=== PATIENT | male | born 1930 | race Caucasian/White ===

== ENCOUNTER 2017-03-30 17:30 | Emergency (ER) | payer OTHER, MEDICARE ==
[~2017-03-30] VITALS: Ht 175.3 cm; Wt 91.0 kg
[~2017-03-30 17:30] MED LIST: ASPIR-LOW81 MG PO; ASPIRIN325 MG PO; AVODART0.5 MG PO; B-COMPLEX FOL400 MCG PO; CARISOPRODOL350 MG PO; CLONAZEPAM0.5 MG PO; COZAAR50 MG PO; CYANOCOBALAM1000 MCG PO; DARVOCET-N 1001 EACH PO; DIURETIC; ELIQUIS5 MG PO; FLONASE16 G1 BOTH NARES; INDAPAMIDE2.5 MG PO; IRON325 M1 PO; KLONOPIN0.5 M1 PO; LIDODERM 5% P1 PATCH TD; LIPITOR20 MG PO; LOSARTAN POTAS100 MG PO; LOSARTAN POTASS50 MG PO; LUMITENE30 MG PO; MAALOX MAXIMUM355 ML PO; MAGNESIUM250 MG PO; MELATONIN5 M1 PO; MULTIPLE VITAM1 EACH PO; NIACIN250 M1 PO; NIACIN250 M3 PO; NIFEDIPINE ER60 MG PO; ONGLYZA5 MG PO; PLAVIX75 MG PO; PROSCAR5 MG PO; PROSTATE HEALT1 EACH PO; TENORMIN50 MG PO; TRAMADOL HCL50 MG PO; TRILIPIX135 MG; TRILIPIX135 MG PO; TUMS ULTRA1000 MG PO; ULTRA STRENGT PO; VESICARE5 MG PO; VIRT-VITE PLUS T5 MG PO; VITAMIN A DAY1 EACH PO; VITAMIN D1000 INTUN PO; VITAMIN D1000 UNIT PO; ZANTAC150 M1 PO; ZANTAC150 MG PO
[2017-03-30 20:40] VITALS: BP 152/77
== END 2017-03-30 20:40 | disposition home or self-care (01) ==
LOC: EME 17:30
DX: S01.01XA Laceration without foreign body of scalp, initial encounter (principal); W01.198A Fall on same level from slipping, tripping and stumbling with subsequent striking against other object, initial encounter; Y93.01 Activity, walking, marching and hiking; Z23 Encounter for immunization; E78.5 Hyperlipidemia, unspecified; I10 Essential (primary) hypertension; I25.2 Old myocardial infarction; Z95.5 Presence of coronary angioplasty implant and graft
CPT/HCPCS: 70450; 99281; 99285

== ENCOUNTER 2017-12-26 12:07 | Inpatient (IN) | payer OTHER, MEDICARE ==
[2017-12-26] VITALS (7 sets, daily range): BP systolic 117–147; BP diastolic 59–69
[~2017-12-26] VITALS: Ht 172.7 cm; Wt 81.2 kg
[~2017-12-26 12:07] MED LIST changes: +ATORVASTATIN CA20 MG PO; +CARDIZEM CD120 M1 PO; +CARDIZEM60 MG PO; +FUROSEMIDE40 MG PO; +LASIX20 MG PO; +LORAZEPAM0.5 MG PO; +LOW DOSE ASPIRI81 M1 PO; +METFORMIN HCL500 MG PO; +PROTONIX40 MG PO
[2017-12-26 13:17] LABS: INTER. NORMALIZED RATIO 1.2
[2017-12-26 13:18] LABS: HEMATOCRIT 20.6 % (38.0-50.0); MCH 27.7 PG (29.0-34.0); MCHC 31.6 G/DL (30.0-36.0); MCV 87.7 FL (86-99); NRBC (%) 1.1 /100 WBC (0-0); PLATELET COUNT 214 K/uL (156-360); RBC DIS.WIDTH-CV 16.1 % (11.8-14.6); RBC DIS.WIDTH-SD 49.5 % (39-53); RED BLOOD COUNT 2.35 M/uL (4.00-5.50); WHITE BLOOD COUNT 7.9 K/uL (4.1-10.2)
[2017-12-26 13:19] LABS: CHLORIDE 99 mEq/L (99-109); SODIUM 137 mEq/L (136-147)
[2017-12-26 13:21] LABS: GLUCOSE 246 mg/dL (70-99); HEMOGLOBIN 6.5 G/DL (12.5-16.6)
[2017-12-26 13:25] LABS: CREATININE 1.3 mg/dL (0.6-1.3); GFR ESTIMATE (CALCULATED) 56 mL/min/ (58.99-99999)
[2017-12-26 13:26] LABS: UREA NITROGEN (BUN) 55 mg/dL (9-23)
[2017-12-26 13:31] LABS: TROP-I INTERPRETATION NEGATIVE; TROPONIN-I 0.01 ng/mL (0.0-0.30)
[2017-12-26 14:00] LABS: ABS NEUTROPHIL COUNT 5.6; ANISOCYTOSIS 1+; EOSINOPHIL ABS CT 0.5; PLAT.SUFFICIENCY ADEQUATE; POLYCHROMASIA 1+
[2017-12-26] MEDS ORDERED: CARTIA XT120 MG PO (14:12)
[2017-12-26] MEDS ORDERED: PANTOPRAZOLE SO40 MG PO (14:12)
[2017-12-26 21:33] LABS: HEMATOCRIT 23.4 % (38.0-50.0); HEMOGLOBIN 7.6 G/DL (12.5-16.6)
[2017-12-27] VITALS (7 sets, daily range): BP systolic 129–173; BP diastolic 58–84
[2017-12-27 06:25] LABS: HEMATOCRIT 22.5 % (38.0-50.0); HEMOGLOBIN 7.2 G/DL (12.5-16.6); MCV 87.2 FL (86-99)
[2017-12-27 06:44] LABS: ALKALINE PHOSPHATASE 44 IU/L (3-129); ALT (GPT) 13 IU/L (3-49); AST (GOT) 13 IU/L (2-34); CHLORIDE 101 MEQ/L (99-109); CREATININE 1.1 MG/DL (0.6-1.3); GFR ESTIMATE (CALCULATED) > 59 mL/min/ (58.99-99999); GLUCOSE 168 mg/dL (70-99); SODIUM 142 MEQ/L (136-147); TOTAL BILIRUBIN 0.6 MG/DL (0.0-1.0); UREA NITROGEN (BUN) 37 mg/dL (9-23)
[2017-12-28 02:48] LABS: HEMATOCRIT 27.2 % (38.0-50.0); HEMOGLOBIN 8.6 G/DL (12.5-16.6)
[2017-12-28 05:22] VITALS: BP 134/61
[2017-12-28 06:35] LABS: BASOPHIL (%) 0.6 % (0-1); EOSINOPHIL (%) 4.8 % (0-5); EOSINOPHIL COUNT 0.3 K/uL (0-0.3); HEMOGLOBIN 8.6 G/DL (12.5-16.6); IMMATURE GRANULOCYTE (%) 3.6 % (0.0-0.7); LYMPHOCYTE (%) 9.5 % (15-42); LYMPHOCYTE COUNT 0.6 K/uL (1.0-2.8); MCH 27.6 PG (29.0-34.0); MCHC 31.9 G/DL (30.0-36.0); MCV 86.5 FL (86-99); MONOCYTE (%) 13.8 % (3-12); MONOCYTE COUNT 0.9 K/uL (0-0.8); NEUTROPHIL (%) 67.7 % (45-76); NEUTROPHIL COUNT 4.5 K/uL (1.8-6.4); NRBC (%) 0.6 /100 WBC (0-0); PLATELET COUNT 232 K/uL (156-360); RBC DIS.WIDTH-CV 15.9 % (11.8-14.6); WHITE BLOOD COUNT 6.7 K/uL (4.1-10.2)
[2017-12-28 06:39] LABS: RED BLOOD COUNT 3.12 M/uL (4.00-5.50)
[2017-12-28 06:45] LABS: CHLORIDE 99 MEQ/L (99-109); CREATININE 1.1 MG/DL (0.6-1.3); GFR ESTIMATE (CALCULATED) > 59 mL/min/ (58.99-99999); GLUCOSE 157 mg/dL (70-99); POTASSIUM 3.5 MEQ/L (3.7-5.4); SODIUM 140 MEQ/L (136-147); UREA NITROGEN (BUN) 23 mg/dL (9-23)
[2017-12-28 07:21] VITALS: BP 135/64
[2017-12-28 12:02] VITALS: BP 121/72
[2017-12-28 15:33] VITALS: BP 131/60
[2017-12-28 19:52] VITALS: BP 151/64
[2017-12-28 23:05] VITALS: BP 108/58
[2017-12-29 04:24] VITALS: BP 135/61
[2017-12-29 05:30] LABS: BASOPHIL (%) 0.3 % (0-1); EOSINOPHIL (%) 5.6 % (0-5); EOSINOPHIL COUNT 0.4 K/uL (0-0.3); HEMATOCRIT 26.9 % (38.0-50.0); HEMOGLOBIN 8.5 G/DL (12.5-16.6); IMMATURE GRANULOCYTE (%) 2.4 % (0.0-0.7); LYMPHOCYTE (%) 15.6 % (15-42); MCH 27.6 PG (29.0-34.0); MCHC 31.6 G/DL (30.0-36.0); MCV 87.3 FL (86-99); MONOCYTE (%) 15.3 % (3-12); NEUTROPHIL (%) 60.8 % (45-76); NEUTROPHIL COUNT 3.8 K/uL (1.8-6.4); PLATELET COUNT 266 K/uL (156-360); RBC DIS.WIDTH-CV 15.9 % (11.8-14.6); RBC DIS.WIDTH-SD 49.2 % (39-53); RED BLOOD COUNT 3.08 M/uL (4.00-5.50); WHITE BLOOD COUNT 6.3 K/uL (4.1-10.2)
[2017-12-29 05:53] LABS: CHLORIDE 103 MEQ/L (99-109); CREATININE 1.2 MG/DL (0.6-1.3); GFR ESTIMATE (CALCULATED) > 59 mL/min/ (58.99-99999); GLUCOSE 155 mg/dL (70-99); POTASSIUM 3.8 MEQ/L (3.7-5.4); SODIUM 140 MEQ/L (136-147); UREA NITROGEN (BUN) 25 mg/dL (9-23)
[2017-12-29 08:07] VITALS: BP 119/57
[2017-12-29 11:36] VITALS: BP 146/68
[2017-12-29] MEDS ORDERED: FEOSOL325 MG PO (12:20)
[2017-12-29] MEDS ORDERED: COLACE100 MG PO (12:20)
[2017-12-29] MEDS ORDERED: MIRALAX17 GM PO (12:21)
== END 2017-12-29 15:00 | disposition home or self-care (01) | DRG 378 ==
LOC: EME 12:07 → EDOF 13:30 → 3EAST 13:30 → ENRESERV 13:53 → 3EAST 14:49
PROVIDERS: Emergency Medicine; Family Medicine
DX: K26.4 Chronic or unspecified duodenal ulcer with hemorrhage (principal); T39.015A Adverse effect of aspirin, initial encounter; K44.9 Diaphragmatic hernia without obstruction or gangrene; I11.0 Hypertensive heart disease with heart failure; I50.30 Unspecified diastolic (congestive) heart failure; I48.0 Paroxysmal atrial fibrillation; E11.51 Type 2 diabetes mellitus with diabetic peripheral angiopathy without gangrene; I25.10 Atherosclerotic heart disease of native coronary artery without angina pectoris; E78.5 Hyperlipidemia, unspecified; I35.0 Nonrheumatic aortic (valve) stenosis; I25.2 Old myocardial infarction; Z95.5 Presence of coronary angioplasty implant and graft; Z79.82 Long term (current) use of aspirin; Z79.84 Long term (current) use of oral hypoglycemic drugs
CPT/HCPCS: 36415; 80048; 80053; 82948; 84484; 85014; 85018; 85025; 85610; 85730; 86850; 86900; 86901; 86920; 99281; 99284; C9113; J1815; J1940; J7050; P9016; P9040